=== PATIENT | female | born 1985 | race Two or more races ===

== ENCOUNTER 2018-04-04 10:11 | Outpatient (CLI) | payer OTHER | END 2018-04-04 16:19 | disposition home or self-care (01) | LOC: RX STUDY 10:11 | DX: D25.9 Leiomyoma of uterus, unspecified (principal); N84.0 Polyp of corpus uteri ==

== ENCOUNTER 2019-09-23 06:35 | Outpatient (CLI) | payer OTHER | END 2019-09-23 06:45 | disposition home or self-care (01) | LOC: LAB 06:35 | PROVIDERS: ATTEND Internal Medicine Gastroenterology | DX: R10.11 Right upper quadrant pain (principal) ==

== ENCOUNTER 2019-09-23 07:31 | Outpatient (CLI) | payer OTHER | END 2019-09-23 07:38 | disposition home or self-care (01) | LOC: SONOGRAMA 07:31 | PROVIDERS: ATTEND Internal Medicine Gastroenterology | DX: R10.13 Epigastric pain (principal); R10.11 Right upper quadrant pain ==

== ENCOUNTER 2019-09-25 19:08 | Inpatient (IN) | payer OTHER ==
[~2019-09-25] VITALS: Ht 149.9 cm; Wt 70.3 kg
[2019-09-25] MEDS ORDERED: LABETALOL HCL100 MG PO (19:19)
== END 2019-09-28 11:03 | disposition home or self-care (01) | DRG 419 ==
LOC: ER 19:08 → SEC-K 09-26 01:59 → SURG 09-26 01:59
PROVIDERS: Surgery; ADMIT Internal Medicine; ATTEND Internal Medicine
PROC: [UNRECOGNIZED PROCEDURE] (2019-09-26)
PROC: 0FT44ZZ Resection of Gallbladder, Percutaneous Endoscopic Approach (ICD-10-PCS; principal; 2019-09-26 19:00)
DX: K80.00 Calculus of gallbladder with acute cholecystitis without obstruction (principal); I10 Essential (primary) hypertension; R31.0 Gross hematuria; Z20.828 Contact with and (suspected) exposure to other viral communicable diseases